=== PATIENT | female | born 1970 | race Two or more races ===

== ENCOUNTER 2018-06-15 05:39 | Emergency (ER) | payer OTHER ==
[~2018-06-15] VITALS: Ht 154.9 cm; Wt 55.3 kg
[2018-06-15] MEDS ORDERED: BENADRYL25 MG (06:02)
== END 2018-06-15 09:07 | disposition home or self-care (01) ==
LOC: ER 05:39
DX: R13.19 Other dysphagia (principal)

== ENCOUNTER 2018-06-17 07:16 | Outpatient (CLI) | payer OTHER ==
[~2018-06-17 07:16] MED LIST: BENADRYL25 MG
== END 2018-06-17 17:00 | disposition home or self-care (01) ==
LOC: RAD 07:16
DX: R13.19 Other dysphagia (principal)

== ENCOUNTER 2018-06-18 08:01 | Outpatient (CLI) | payer OTHER | END 2018-06-18 17:00 | disposition home or self-care (01) | LOC: TOM 08:01 | DX: K22.8 Other specified diseases of esophagus (principal) ==